=== PATIENT | male | born 1995 | race Caucasian/White ===

== ENCOUNTER 2017-09-21 18:34 | Emergency (ER) | payer SELFPAY ==
[~2017-09-21] VITALS: Ht 172.7 cm; Wt 64.0 kg
[2017-09-21] MEDS ORDERED: KETOROLAC 60MG/2ML VIAL IM ONE (21:00)
[2017-09-21 21:22] VITALS: BP 93/54
== END 2017-09-21 21:42 | disposition home or self-care (01) ==
LOC: ER 19:24
DX: R07.81 Pleurodynia (principal); F12.90 Cannabis use, unspecified, uncomplicated
CPT/HCPCS: 71010; 93005; 96372; 99284; J1885; Z7610

== ENCOUNTER 2024-05-11 01:10 | Emergency (ER) | payer OTHER ==
[~2024-05-11] VITALS: Ht 167.6 cm; Wt 67.0 kg
[2024-05-11 01:53] VITALS: BP 127/76; PULSE 89; RESP 18; TEMP 98.7; O2SAT 100
[2024-05-11] MEDS ORDERED: AMOX500T2 MT (02:26)
[2024-05-11] MEDS ORDERED: NEOM10DR11 RIGHT EAR (02:26)
[2024-05-11] MEDS ORDERED: IBUP-2029 MT (02:26)
== END 2024-05-11 03:04 | disposition home or self-care (01) ==
LOC: ER 01:10
DX: H92.03 Otalgia, bilateral (principal)
CPT/HCPCS: 99283